=== PATIENT | male | born 1945 | race Two or more races ===

== ENCOUNTER → 2018-04-19 15:42 | Outpatient (CLI) | payer OTHER ==
[~2018-04-19 15:42] MED LIST: BISOPROLOL FUMAR5 MG; LIPITOR40 MG PO; PREVACID30 MG PO; XARELTO20 MG PO
== END | disposition home or self-care (01) ==
LOC: LAB 15:42
DX: N39.0 Urinary tract infection, site not specified (principal)

== ENCOUNTER → 2018-04-20 13:42 | Outpatient (CLI) | payer OTHER | END | disposition home or self-care (01) | LOC: LAB 13:42 | DX: N39.0 Urinary tract infection, site not specified (principal); B96.29 Other Escherichia coli [E. coli] as the cause of diseases classified elsewhere ==

== ENCOUNTER → 2020-06-29 | Outpatient (CLI) | payer OTHER | END | disposition home or self-care (01) | LOC: PPH VACUNA 02:30 | PROVIDERS: ATTEND Emergency Medicine Pediatric Emergency Medicine | DX: Z23 Encounter for immunization (principal) ==

== ENCOUNTER 2021-04-04 09:30 | Outpatient (CLI) | payer OTHER | END 2021-04-04 09:45 | disposition home or self-care (01) | LOC: PPH VACUNA 09:30 | PROVIDERS: ATTEND Emergency Medicine Pediatric Emergency Medicine | DX: Z23 Encounter for immunization (principal) ==

== ENCOUNTER 2023-07-01 09:07 | Inpatient (IN) | payer OTHER ==
[~2023-07-01] VITALS: Ht 190.5 cm; Wt 93.0 kg
[2023-07-01 10:20] LABS: HEMATOCRIT 44.3 % (39.0-48.0); HEMOGLOBIN 14.9 g/dL (13-16.00); MEAN CELL VOLUME 93.9 fL (80.0-100.00); MEAN CORPUSCULAR HEMOGLOBIN 31.6 pg (27.00-32.0); MEAN CORPUSCULAR HGB CONC 33.6 g/dl (32.0-36.0); PLATELET COUNT 179 K/uL (150-450); RED BLOOD COUNT 4.72 M/uL (4.00-6.00); RED CELL DISTRIBUTION WIDTH 14.8 % (11.5-14.5)
[2023-07-01 10:24] LABS: ABG PH 7.439 (7.35-7.45); ABG PO2 82.9 mmHg (80-100); ABG pCO2 31.5 mmHg (35-45); BASE EXCESS -2.2 mmol/l; BICARBONATE 20.9 mmol/l (23-25); SaO2 96.5 %; Tco2 21.9 mmol/l
[2023-07-01 10:25] LABS: allen test SATISFACTORY; o2 21 %; puncture site RADIAL LEFT
[2023-07-01 10:56] LABS: INR 1.39; PARTIAL THROMBOPLASTIN TIME 28.9 SECONDS (22.0-34.0); PROTHROMBIN TIME 14.2 SECONDS (9.0-11.5)
[2023-07-01 10:59] LABS: CALCIUM 8.7 mg/dL (8.5-10.1); CREATININE SERUM 1.17 mg/dL (0.70-1.30); GFR 59.98; POTASSIUM 4.06 mEq/L (3.5-5.1)
[2023-07-01 17:29] LABS: CKMB 3.2 NG/ML (0.5-3.6)
[2023-07-02 03:33] LABS: CALCIUM 8.8 mg/dL (8.5-10.1); CREATININE SERUM 0.93 mg/dL (0.70-1.30); GFR 78.18; HEMATOCRIT 41.3 % (39.0-48.0); HEMOGLOBIN 13.8 g/dL (13-16.00); MEAN CELL VOLUME 92.1 fL (80.0-100.00); MEAN CORPUSCULAR HEMOGLOBIN 30.9 pg (27.00-32.0); MEAN CORPUSCULAR HGB CONC 33.5 g/dl (32.0-36.0); PLATELET COUNT 153 K/uL (150-450); POTASSIUM 3.85 mEq/L (3.5-5.1); RED BLOOD COUNT 4.48 M/uL (4.00-6.00)
[2023-07-02 03:39] LABS: ALBUMIN 3.5 gm/dL (3.4-5.0); BILIRUBIN TOTAL 2.19 mg/dL (0.3-1.2); CALCIUM 8.7 mg/dL (8.5-10.1); CHOL HDL RATIO 2.4 (0-5.0); CKMB 3.1 NG/ML (0.5-3.6); CREATININE SERUM 0.96 mg/dL (0.70-1.30); GFR 75.36; GLOBULINA 2.3 G/DL (2.4-3.5); POTASSIUM 3.92 mEq/L (3.5-5.1); TOTAL PROTEIN 5.8 gm/dL (6.4-8.2)
[2023-07-02 04:27] LABS: MAGNESIUM 1.8 mg/dL (1.8-2.4); PHOSPHOROUS 4.1 mg/dL (2.5-4.9)
[2023-07-02 11:52] LABS: HEMOGLOBIN 13.9 g/dL (13-16.00); MEAN CELL VOLUME 93.7 fL (80.0-100.00); MEAN CORPUSCULAR HEMOGLOBIN 31.7 pg (27.00-32.0); MEAN CORPUSCULAR HGB CONC 33.8 g/dl (32.0-36.0); PLATELET COUNT 152 K/uL (150-450); RED BLOOD COUNT 4.38 M/uL (4.00-6.00); RED CELL DISTRIBUTION WIDTH 14.7 % (11.5-14.5)
[2023-07-02 12:00] LABS: ERYTHROCYTE SEDIMENTATION RATE 1 mm/hr
[2023-07-02 12:38] LABS: ALBUMIN 3.4 gm/dL (3.4-5.0); ALKALINE PHOSPHATASE 82 U/L (50-136); ALT/SGPT 30 U/L (12-78); ANION GAP 10 (10.0-20.0); AST/SGOT 18 U/L (15-37); BILIRUBIN TOTAL 2.19 mg/dL (0.3-1.2); BLOOD UREA NITROGEN 17 mg/dL (7-18); BUN CREA RATIO 15 (7.0-25.0); CALCIUM 8.7 mg/dL (8.5-10.1); CARBON DIOXIDE 30 mEq/L (21-32); CHLORIDE 108 mmol/L (98-107); CHOL HDL RATIO 2.5 (0-5.0); CHOLESTEROL 86 mg/dL (0-200); CKMB 3.1 NG/ML (0.5-3.6); CREATININE SERUM 1.17 mg/dL (0.70-1.30); GFR 59.98; GLOBULINA 2.4 G/DL (2.4-3.5); GLUCOSE FASTING 192 mg/dL (65-100); HDL 35 mg/dl (40-60); LDL 36 mg/dl (0-130); OSMOLALITY SERUM 294 MOSM/KG (275-295); PHOSPHOKINASE CREATININE 118 U/L (39-308); PHOSPHOROUS 4.2 mg/dL (2.5-4.9); POTASSIUM 4.24 mEq/L (3.5-5.1); SODIUM 144 mmol/L (136-145); TOTAL PROTEIN 5.8 gm/dL (6.4-8.2); TRIGLYCERIDES 73 mg/dL (0-150); VLDL 14 (0-39)
[2023-07-02 12:39] LABS: C-REACTIVE PROTEIN < 0.29 MG/DL (0.00-0.29)
[2023-07-03] MEDS ORDERED: BRIMONIDINE TART5 ML (09:52)
[2023-07-03] MEDS ORDERED: RAMIPRIL5 MG (09:52)
[2023-07-04] MEDS ORDERED: LASIX20 MG PO (16:58)
[2023-07-04] MEDS ORDERED: CARVEDILOL3.125 MG PO (16:58)
[2023-07-04] MEDS ORDERED: ENTRESTO 24 MG1 EACH PO (17:02)
== END 2023-07-04 18:01 | disposition home or self-care (01) | DRG 293 ==
LOC: ER 09:08 → SURG 15:51
PROVIDERS: Emergency Medicine; ADMIT Internal Medicine; ATTEND Internal Medicine
PROC: B24BYZZ Ultrasonography of Heart with Aorta using Other Contrast (ICD-10-PCS; principal; 2023-07-01)
DX: I11.0 Hypertensive heart disease with heart failure (principal); I50.9 Heart failure, unspecified; H40.9 Unspecified glaucoma; I48.91 Unspecified atrial fibrillation

== ENCOUNTER → 2023-10-06 09:52 | Outpatient (CLI) | payer OTHER ==
[~2023-10-06 09:52] MED LIST changes: +BRIMONIDINE TART5 ML; +CARVEDILOL3.125 MG PO; +ENTRESTO 24 MG1 EACH PO; +LASIX20 MG PO; +RAMIPRIL5 MG
== END | disposition home or self-care (01) ==
LOC: NUCLEAR 09:52
PROVIDERS: ATTEND Internal Medicine Sports Medicine
DX: I25.5 Ischemic cardiomyopathy (principal); I50.30 Unspecified diastolic (congestive) heart failure
CPT/HCPCS: 78472; A9560